=== PATIENT | male | born 1950 | race Caucasian/White ===

== ENCOUNTER 2018-06-03 10:54 | Outpatient (CLI) | payer MEDICARE, BC, SELFPAY ==
[2018-06-03 13:07] LABS: HCT 43.8 % (40.0-50.0); HGB 14.6 g/dL (13.5-17.5); Mean Corp. HGB Concentration 33.3 g/dL (32.0-36.0); Mean Corpuscular Hemoglobin 31.3 pg (27.0-33.0); Mean Platelet Volume 10.1 fL (8.0-11.0); Platelet Count 254 x1000/uL (130-400); RBC 4.66 m/cumm (4.50-6.00); RBC Distribution Width 13.2 % (11.8-14.1); White Blood Cell Count 5.72 k/cumm (4.4-10.8)
[2018-06-03 13:10] LABS: ALT 22 U/L (12-78); AST 13 U/L (15-37); Albumin 3.9 g/dL (3.4-5.0); Alkaline Phosphatase 78 U/L (46-116); Anion Gap 8.5 mmol/L (3-11); BUN 17 mg/dL (7-18); Bilirubin, Total 0.4 mg/dL (0.2-1.0); CO2 29.5 mmol/L (21.0-32.0); CREATININE 0.81 mg/dL (0.70-1.30); Calcium 9.5 mg/dL (8.5-10.1); Chloride 102 mmol/L (98-107); Glucose 82 mg/dL (70-100); Potassium 4.3 mmol/L (3.5-5.1); Sodium 140 mmol/L (136-145); Total Protein 6.8 g/dL (6.4-8.2)
[2018-06-04 09:58] LABS: Vitamin B12 308 pg/ml (211-911)
[2018-06-09 08:52] LABS: Methylmalonic Acid 0.18 nmol/mL (<=0.40)
== END 2018-06-03 11:14 ==
PROVIDERS: PCP Family Medicine; Visit Provider Family Medicine
DX: D36.9 Benign neoplasm, unspecified site (principal); R53.83 Other fatigue; I10 Essential (primary) hypertension; E53.8 Deficiency of other specified B group vitamins
CPT/HCPCS: 36415; 80053; 80186; 85027; 82607

== ENCOUNTER → 2018-06-05 12:55 | Outpatient (BNVA) | payer MEDICARE, BC, SELFPAY | PROVIDERS: PCP Family Medicine; Visit Provider Urology | DX: R31.29 Other microscopic hematuria (principal) | CPT/HCPCS: 99213 ==

== ENCOUNTER 2018-10-30 01:37 | Outpatient (CLI) | payer MEDICARE, BC, SELFPAY ==
--- NOTE | 2018-10-30 12:48 | DI.US_ITS ---
SYMPTOMS/DIAGNOSIS: BILATERAL TESTICULAR MASS, NONPAINFUL, N50.9 TESTICULAR ULTRASOUND: The right testicle measures 4.3 x 2.2 x 3.0 cm. It is homogeneous with normal blood flow. No evidence of torsion is seen. There are several simple cysts seen in the region of the epididymal head, the largest measures 2.3 x 1 x 1.8 cm. The left testicle measures 4.4 x 2.9 x 3.0 cm. It is homogeneous in echogenicity. There is normal blood flow. No evidence of torsion is seen. No intratesticular mass is present. There are several cysts seen in the region of the epididymal head, the largest measures 4.4 x 2.1 x 4.1 cm. IMPRESSION: 1. Bilateral epididymal head cysts. The largest is seen on the left and measures 4.4 cm in maximum diameter. 2. No evidence of an intratesticular mass or torsion.
--- NOTE | 2018-10-30 14:25 | DI.RAD_ITS ---
SYMPTOMS/DIAGNOSIS: PAIN AT 1ST LEFT METACARPAL, M79.645, NO TRAUMA LEFT THUMB: Multiple views. No acute fracture or dislocation is seen. There is mild periarticular spurring at the 1st carpometacarpal joint. At the metacarpophalangeal joint, the joint space appears well maintained, as does the interphalangeal joint. The bones are normally mineralized and intact. The soft tissues are unremarkable. IMPRESSION: Mild osteoarthritis at the 1st carpometacarpal joint.
== END 2018-10-30 01:57 ==
PROVIDERS: PCP Family Medicine; Visit Provider Family Medicine
DX: N50.9 Disorder of male genital organs, unspecified (principal); N50.3 Cyst of epididymis; M79.645 Pain in left finger(s); M18.12 Unilateral primary osteoarthritis of first carpometacarpal joint, left hand
CPT/HCPCS: 73140; 76870

== ENCOUNTER → 2018-11-24 14:20 | Outpatient (BNVA) | payer MEDICARE, BC, SELFPAY | PROVIDERS: PCP Family Medicine; Referring Provider Family Medicine; Visit Provider Urology | DX: N43.42 Spermatocele of epididymis, multiple (principal) | CPT/HCPCS: 99213 ==

== ENCOUNTER 2019-05-13 08:09 | Outpatient (CLI) | payer MEDICARE, BC, SELFPAY ==
[2019-05-13 08:36] LABS: Bilirubin Negative (Negative); Blood Trace-intact (Negative); Clarity Clear (Clear); Glucose Negative (Negative); Ketones Negative (Negative); Leukocyte Esterase Negative (Negative); Nitrite Negative (Negative); Urobilinogen 0.2 EU/dL (Up TO 0.2)
[2019-05-13 08:45] LABS: Bacteria Negative HPF (Negative); C & S Indicated? No; Casts Negative LPF (Negative); Crystals Negative HPF (Negative); Epithelial Cells Negative HPF (Negative); Mucus Negative (Negative); Other Cells Negative (Negative); RBC 0-2 (0-2); WBC Negative HPF (0-5)
[2019-05-13 09:32] LABS: ALT 19 U/L (16-63); AST 13 U/L (15-37); Albumin 3.9 g/dL (3.4-5.0); Alkaline Phosphatase 62 U/L (46-116); Anion Gap 6.6 mmol/L (3-11); BUN 21 mg/dL (7-18); Bilirubin, Total 0.5 mg/dL (0.2-1.0); CO2 31.4 mmol/L (21.0-32.0); CREATININE 1.06 mg/dL (0.70-1.30); Calcium 8.9 mg/dL (8.5-10.1); Calculated LDL 115 mg/dL; Chloride 104 mmol/L (98-107); Cholesterol 195 mg/dL (50-200); Glucose 94 mg/dL (70-100); HDL Cholesterol 61 mg/dL (40-60); Sodium 142 mmol/L (136-145); Total Protein 6.7 g/dL (6.4-8.2); Triglyceride 95 mg/dL (30-150)
[2019-05-14 17:58] LABS: PSA, Screening 0.7 ng/ml (0-4.5)
== END 2019-05-13 08:29 ==
PROVIDERS: PCP Family Medicine; Visit Provider Urology
DX: I10 Essential (primary) hypertension (principal); R31.9 Hematuria, unspecified; Z12.5 Encounter for screening for malignant neoplasm of prostate
CPT/HCPCS: 36415; 80053; 80061; 84153; 81003; 81015

== ENCOUNTER → 2019-06-08 10:14 | Outpatient (BNVA) | payer MEDICARE, BC, SELFPAY | PROVIDERS: PCP Family Medicine; Referring Provider Family Medicine; Visit Provider Urology | DX: R53.83 Other fatigue (principal); N43.40 Spermatocele of epididymis, unspecified | CPT/HCPCS: 99213 ==

== ENCOUNTER 2019-06-09 08:59 | Outpatient (CLI) | payer MEDICARE, BC, SELFPAY ==
[2019-06-09 10:39] LABS: TSH 2.03 uIU/mL (0.36-3.74)
[2019-06-11 11:21] LABS: Testosterone, Total 408 ng/dL (240-950)
== END 2019-06-09 09:19 ==
PROVIDERS: PCP Family Medicine; Visit Provider Urology
DX: R53.83 Other fatigue (principal)
CPT/HCPCS: 36415; 84403; 84443

== ENCOUNTER 2020-05-03 02:58 | Outpatient (CLI) | payer MEDICARE, BC, SELFPAY ==
--- NOTE | 2020-05-03 10:13 | DI.US_ITS ---
APPROVED REPORT EXAM: Comprehensive 2D, Doppler, and color-flow Echocardiogram Patient Location: Out-Patient Government Program Manager: Coni Mcginnis RDCS (AE) Indications: Fatigue, Exertional Dyspnea, HTN Other Information Study Quality: Good Conclusion Left Ventricle : The left ventricle is normal size. The left ventricular systolic function is normal. The left ventricular ejection fraction is within the normal range. There is normal left ventricular wall thickness. There is normal LV segmental wall motion. The left ventricular diastolic function is normal. LVEF is 60-65%. Right Ventricle : The right ventricle is normal size. The right ventricular systolic function is norm al. The RVSP is 32.6mmHg. Atria : The left atrium size is normal. The right atrium size is normal. Valves: There are no hemodynamically significant valvular lesions. Great Vessels : The aortic root is normal in size. The ascending aorta is mildly dilated. Aortic arch is normal in caliber. IVC is normal in size and collapses >50% with inspiration. Please see remainder of study for further details. Wall motion Left Ventricle The left ventricle is normal size. The left ventricular systolic function is normal. The left ventric ular ejection fraction is within the normal range. There is normal left ventricular wall thickness. T here is normal LV segmental wall motion. The left ventricular diastolic function is normal. There is no ventricular septal defect visualized. LVEF is 60-65%. Right Ventricle The right ventricle is normal size. The right ventricular systolic function is normal. The RVSP is 32 .6mmHg. Atria The left atrium size is normal. The right atrium size is normal. Atrial septal aneurysm is present. Aortic Valve The Aortic valve is sclerotic. Aortic valve is trileaflet. There is no aortic valvular stenosis. Trac e aortic regurgitation. Mitral Valve Mild mitral annular calcification. No evidence of mitral valve stenosis. Trace mitral regurgitation. Tricuspid Valve The tricuspid valve is normal in structure. There is no tricuspid valve stenosis. Mild tricuspid regu rgitation. Pulmonic Valve The pulmonary valve is normal in structure. There is no pulmonic valvular stenosis. Trace pulmonic re gurgitation. Great Vessels The aortic root is normal in size. The ascending aorta is mildly dilated. Aortic arch is normal in ca liber. IVC is normal in size and collapses >50% with inspiration. Pericardium There is no pericardial effusion. 2D Dimensions IVSD d PLAX 0.99 cm M: 0.6-1.2 LV Vol A2C d MOD 102.5 mL LVPW d PLAX 0.90 cm M: 0.6 - 1.2 LV Vol A4C d MOD 109.0 mL LVID d PLAX 5.09 cm M: 4.2 - 5.8 LA vol/ BSA A2C s A-L 20.4 mL/m2 LVDs 3.40 cm M: 2.5 - 4.0 LA vol/ BSA A4C s A-L 13.0 mL/m2 Ao Root d 3.79 cm M: 3.1 - 3.7 LA Vol/ BSA Biplane s A-L 16.4 mL/m2 RA Area A4C 17.64 cm2 LA Area A4C s MOD 13.55 cm2 RA Vol/ BSA A4C s A-L 21.8 mL/m2 LA Area A2C s MOD 16.85 cm2 Ao Asc Diam d 3.80 cm M: 2.6 - 3.4 LV EF A4C MOD 65.6 % LV EF Teichholz 60.4 % LV EF A2C MOD 60.4 % LVEF (Arias's) 63.39 % M: 52 - 72 LV EF Biplane MOD 63.4 % LV Volume 75.71 mL M: 62 - 150 SV 67.53 mL LV Volume Index 31.94 mL/m2 M: 34 - 74 SV Index 28.45 mL/m2 LV Vol Biplane MOD 106.5 mL FS 32.35 % M-Mode TAPSE 2.44 cm (M/F) >1.7 LV Diastology MV E' medial 0.078 (>0.07 m/s) E/A Ratio 0.8 LV E/e MED 9.75 (<14) MV E Vmax 0.76 (0.4-1.3 m/s) MV E' lateral 0.104 (>0.1 m/s) MV A Vmax 0.90 (0.4-1.3 m/s) LV E/e LAT 7.35 (<14) MV E/A Ratio 0.84 MV E/E' medial 9.77 MV E/E' lateral 7.35 Aortic Valve LVOT Area 3.92 cm2 AoV Area Vmax 2.95 cm2 LVOT Vmax 1.11 m/s AoV Area/ BSA (Vmax) 1.24 cm2/m2 LVOT Mean Jackson. 0.79 m/s BETHEL Mean Jackson. 3.03 cm2 LVOT Peak Grad 5.0 mmHg BETHEL Mean Jackson. Index 1.28 cm2/m2 LVOT Mean Grad 2.8 mmHg LVOT VTI 0.197 m LVOT Diam s 2.20 cm AoV Vmax 1.48 m/s Velocity Ratio 0.75 AoV Mean Jackson. 1.02 m/s AoV Peak Grad 8.7 mmHg LVOT SV 77.10 mL AoV Mean Grad 4.7 mmHg AoV VTI 0.284 m AoV Area VTI 2.71 cm2 AoV Area/ BSA (VTI) 1.14 cm/m2 Mitral Valve MV DT 220 (160-240 msec) MV PHT 64 msec MV Area PHT 3.45 cm2 Pulmonary Valve PV Vmax 1.67 (0.5-1.5 m/s) RVOT Peak Gr. 1.57 mmHg PV Peak Grad 11.1 mmHg RVOT Mean Gr. 0.75 mmHg PV Mean Grad 5.7 mmHg RVOT VTI 0.138 m PV VTI 0.274 m RVOT Vmax 0.63 m/s Tricuspid Valve TR Peak Grad 29.6 mmHg TR Vmax 2.72 m/s RA Pressure 3.00 mmHg RVSP (TR) 32.6 mmHg
== END 2020-05-03 03:18 ==
PROVIDERS: PCP Family Medicine; Visit Provider Family Medicine
DX: I10 Essential (primary) hypertension (principal); I77.810 Thoracic aortic ectasia
CPT/HCPCS: 80053; 80061; 85025; 93306

== ENCOUNTER 2020-05-03 05:26 | Outpatient (CLI) | payer MEDICARE, BC, SELFPAY ==
[2020-05-03 09:41] LABS: Abs Immature Grans 0.01 10^3/uL (0.0-0.06); Absolute Basophil Count 0.04 10^3/uL (0.0-0.2); Absolute Eosinophil Count 0.28 10^3/uL (0.0-0.7); Absolute Lymphocyte Count 1.88 10^3/uL (1.2-3.4); Absolute Monocyte Count 0.62 10^3/uL (0.1-0.8); Absolute Neutrophil Count 3.79 10^3/uL (1.2-6.7); Basophils % 0.6; Eosinophils % 4.2; HCT 43.2 % (40.0-50.0); HGB 14.8 g/dL (13.5-17.5); Immature Grans % 0.2; Lymphocytes % 28.4; MCH 31.8 pg (27.0-33.0); MCHC 34.3 % (32.0-36.0); MCV 92.7 fL (80-95); MPV 9.1 fL (8.0-11.0); Monocytes % 9.4; Neutrophils % 57.2; Nucleated RBC 0 %; Platelet Count 217 10^3/uL (130-400); RBC 4.66 10^6/uL (4.36-5.78); RDW 12.9 % (11.8-14.1); RDW-SD 43.9 fL; WBC 6.62 10^3/uL (4.4-10.8)
[2020-05-03 11:04] LABS: ALT 23 U/L (16-63); AST 14 U/L (15-37); Alkaline Phosphatase 60 U/L (46-116); Anion Gap 7.8 mmol/L (3-11); BUN 20 mg/dL (7-18); Bilirubin, Total 0.5 mg/dL (0.2-1.0); CO2 28.2 mmol/L (21.0-32.0); CREATININE 0.96 mg/dL (0.70-1.30); Calcium 9.2 mg/dL (8.5-10.1); Calculated LDL 129 mg/dL (<100); Chloride 104 mmol/L (98-107); Cholesterol 209 mg/dL (<200); Glucose 95 mg/dL (74-106); HDL Cholesterol 56 mg/dL (40-60); Potassium 4.3 mmol/L (3.5-5.1); Sodium 140 mmol/L (136-145); Total Protein 6.8 g/dL (6.4-8.2); Triglyceride 120 mg/dL (<150)
== END 2020-05-03 05:46 ==
PROVIDERS: PCP Family Medicine; Visit Provider Family Medicine
DX: I10 Essential (primary) hypertension (principal)
CPT/HCPCS: 80053; 80061; 85025

== ENCOUNTER 2020-12-27 02:42 | Outpatient (CLI) | payer MEDICARE, BC, SELFPAY ==
--- NOTE | 2020-12-27 06:30 | DI.US_ITS ---
Exam(s) US ABDOMEN EXAM: US ABDOMEN CLINICAL HISTORY: abdominal pain/upper abdomen/post prandial worse.R10.9 TECHNIQUE: Ultrasound of complete upper abdomen performed using standard protocol. COMPARISON: US US ECHOCARDIOGRAM from 05/03/2020 FINDINGS: There is no ascites evident. LIVER: There are no hepatic lesions evident nor obvious dilatation of intrahepatic ducts. GALLBLADDER/BILIARY: There are no gallstones. No gallbladder wall edema nor pericholecystic fluid. The common hepatic duct isnot dilated, measuring 3-4mm at the level of zarina hepatis. PANCREAS: There is no evidence of pancreatic mass nor dilatation of the pancreatic duct. SPLEEN: The spleen is not enlarged and there are no intrasplenic lesions evident. KIDNEYS:Right kidney appears unremarkable. There is a 4-5 millimeter hyperechoic focus in the left k idney which may be a small nonobstructive calculus. Does not exhibit shadowing. Cannot rule out sma ll benign angiomyolipoma. No cortical cysts evident. ABDOMINAL AORTA: There is no evidence of abdominal aortic aneurysm. IVC: Normal diameter where visualized. IMPRESSION: 1. No evidence of cholelithiasis nor dilatation of the biliary tree. 2. 4 millimeter probable nonobstructive calculus in the left kidney. 3. There is no ascites. DATA REPOSITORY:
== END 2020-12-27 03:02 ==
PROVIDERS: PCP Family Medicine; Visit Provider Family Medicine
DX: R10.12 Left upper quadrant pain (principal); N20.0 Calculus of kidney
CPT/HCPCS: 76700

== ENCOUNTER 2020-12-27 04:26 | Outpatient (CLI) | payer MEDICARE, BC, SELFPAY ==
[2020-12-27 07:28] LABS: Abs Immature Grans 0.02 10^3/uL (0.0-0.06); Absolute Basophil Count 0.03 10^3/uL (0.0-0.2); Absolute Eosinophil Count 0.23 10^3/uL (0.0-0.7); Absolute Monocyte Count 0.58 10^3/uL (0.1-0.8); Absolute Neutrophil Count 3.34 10^3/uL (1.2-6.7); Basophils % 0.5; HCT 42.8 % (40.0-50.0); HGB 14.4 g/dL (13.5-17.5); Immature Grans % 0.3; Lymphocytes % 27.6; MCH 31.5 pg (27.0-33.0); MCHC 33.6 % (32.0-36.0); MCV 93.7 fL (80-95); MPV 9.1 fL (8.0-11.0); Neutrophils % 57.6; Nucleated RBC 0 %; Platelet Count 244 10^3/uL (130-400); RBC 4.57 10^6/uL (4.36-5.78); RDW 12.9 % (11.8-14.1); RDW-SD 44.3 fL
[2020-12-27 08:56] LABS: ALT 24 U/L (16-63); AST 15 U/L (15-37); Albumin 3.9 g/dL (3.4-5.0); Alkaline Phosphatase 76 U/L (46-116); Amylase 38 U/L (25-115); Anion Gap 6.4 mmol/L (3-11); BUN 16 mg/dL (7-18); Bilirubin, Total 0.6 mg/dL (0.2-1.0); CO2 31.6 mmol/L (21.0-32.0); CREATININE 1.1 mg/dL (0.70-1.30); Calcium 9.2 mg/dL (8.5-10.1); Chloride 104 mmol/L (98-107); Glucose 95 mg/dL (74-106); Lipase 52 U/L (73-393); Potassium 4.3 mmol/L (3.5-5.1); Sodium 142 mmol/L (136-145); Total Protein 6.9 g/dL (6.4-8.2)
[2020-12-27 09:04] LABS: GGT 37 U/L (15-85)
[2020-12-28 09:41] LABS: Lyme Ab w Rflx to Lyme Confirm Negative (Negative)
[2020-12-29 03:42] LABS: Anaplasma phagocytophilum Negative (Negative); B. miyamotoi PCR Negative (Negative); Babesia divergens/MO-1 Negative (Negative); Babesia duncani Negative (Negative); Babesia microti Negative (Negative); Ehrlichia chaffeensis Negative (Negative); Ehrlichia ewingii/canis Negative (Negative); Ehrlichia muris eauclairensis Negative (Negative)
== END 2020-12-27 04:27 | disposition home or self-care (01) ==
LOC: LBO 04:26
PROVIDERS: PCP Family Medicine; Visit Provider Family Medicine
DX: R10.12 Left upper quadrant pain (principal); E78.00 Pure hypercholesterolemia, unspecified; R53.83 Other fatigue; N20.0 Calculus of kidney
CPT/HCPCS: 36415; 80053; 83690; 87798; 76700; 82150; 82977; 85025; 86618

== ENCOUNTER 2021-01-29 02:11 | Outpatient (CLI) | payer MEDICARE, BC, SELFPAY ==
--- NOTE | 2021-01-29 10:43 | DI.RAD_ITS ---
Exam(s) XR CHEST 2V PA LATERAL EXAM: XR CHEST 2V PA LATERAL CLINICAL HISTORY: exertional dyspnea de pamela, R06.00. TECHNIQUE: 2D digital imaging was performed. COMPARISON: CT CHEST WITH CONTRAST from 12/03/2013 CT CHEST WITH CONTRAST from 12/03/2013 was reviewed FINDINGS: Heart size is normal. The mediastinum is not widened. There are no pulmonary infiltrates nor pleural effusions. There is a 1.5 by 1.0 cm nodule in right l tami base which is probably a granuloma given its density. However, this was not evident on the 2014 CT scan. There are no other focal pulmonary findings. IMPRESSION: There is a 15 x 10 millimeter nodule in the right lower lung was not evident on CT scan of 2014. Alt nery this may be a calcified granuloma recommend noninfused CT scan confirmation. DATA REPOSITORY: RADIATION DOSE DELIVERED:
== END 2021-01-29 02:31 ==
PROVIDERS: PCP Family Medicine; Visit Provider Family Medicine
DX: R91.1 Solitary pulmonary nodule (principal); R06.00 Dyspnea, unspecified
CPT/HCPCS: 71046

== ENCOUNTER 2021-01-30 03:01 | Outpatient (CLI) | payer MEDICARE, BC, SELFPAY ==
[2021-01-30 16:57] LABS: PSA, Screening 0.9 ng/mL (0.0-6.5)
== END 2021-01-30 03:02 | disposition home or self-care (01) ==
LOC: LOS 03:02
PROVIDERS: PCP Family Medicine; Visit Provider Family Medicine
DX: R53.83 Other fatigue (principal); N40.0 Benign prostatic hyperplasia without lower urinary tract symptoms; Z12.5 Encounter for screening for malignant neoplasm of prostate
CPT/HCPCS: 36415; 84153; 84443

== ENCOUNTER 2021-01-30 07:22 | Outpatient (CLI) | payer MEDICARE, BC, SELFPAY ==
[2021-01-30] MEDS: Albuterol HFA 18 GM 200 PUFF INH IH (11:20)
[2021-01-30] MEDS: Inhaler, Assist Device 1 EACH MC (11:21)
--- NOTE | 2021-01-30 16:17 | W.PFT ---
Date of service: 01/30/21 Time of Service: 10:02 Pulmonary Function Test Result Interpretation Spirometry: No evidence of obstructive airways disease, no bronchodilator response Impression Normal spirometry Clinical Correlation therefore is recommended.
== END 2021-01-30 07:23 | disposition home or self-care (01) ==
LOC: RT 07:24
PROVIDERS: PCP Family Medicine; Visit Provider Family Medicine
DX: R06.09 Other forms of dyspnea (principal); Z87.891 Personal history of nicotine dependence
CPT/HCPCS: 94060; 94726; 94729

== ENCOUNTER 2021-02-09 03:19 | Outpatient (CLI) | payer MEDICARE, BC, SELFPAY ==
--- NOTE | 2021-02-09 07:45 | DI.CT_ITS ---
Exam(s) CT CHEST WO EXAM: CT CHEST WO CLINICAL HISTORY: RLL 15 x 10mm nodule on chest xray,LUNG NODULE,R91.1 TECHNIQUE: Imaging Protocol: Axial computed tomography images with coronal and sagittal reformatted images were created and reviewed CONTRAST MATERIAL: Intravenous: Omnipaque 350 Contrast volume:structured data in ml. COMPARISON: CT CHEST WITH CONTRAST from 12/03/2013 CR XR CHEST 2V PA LATERAL from 01/29/2021 FINDINGS: Calcification question on recent chest x-ray corresponds to a calcified right infrahilar lymph node. Calcified subcarinal lymph node also seen. They were present on the previous CT of 2013. Two addit ional tiny calcified nodules are seen in the right lower lobe. No suspicious nodules or suspicious a denopathy is seen. Coronary artery calcifications are seen. The heart size is normal. The aorta is normal in diameter. No pleural or pericardial effusions or evidence of infiltrates. Degenerative c hanges are seen in the spine. The visualized portions of the upper abdomen are unremarkable. IMPRESSION: Calcified right inferior hilar and mediastinal lymph nodes consistent with old healed granulomatous d isease. no change from 2014. No suspicious pulmonary nodules. RADIATION DOSE DELIVERED: 708.4mGy.cm Total DLP DATA REPOSITORY: All CT scans at this facility are submitted to the National Radiology Data Registry (NRDR) Dose Index Registry (DIR) with the [employer] (ACR). RADIATION OPTIMIZATION: All CT scans at this facility use at least one of these dose optimization te chniques: automated exposure control; mA and/or kV adjustment per patient size (includes targeted exa ms where dose is matched to clinical indication); or iterative reconstruction.
== END 2021-02-09 03:39 ==
PROVIDERS: PCP Family Medicine; Visit Provider Family Medicine
DX: R91.1 Solitary pulmonary nodule (principal); I89.8 Other specified noninfective disorders of lymphatic vessels and lymph nodes
CPT/HCPCS: 71250

== ENCOUNTER 2021-03-20 02:04 | Outpatient (CLI) | payer MEDICARE, BC, SELFPAY ==
--- NOTE | 2021-03-20 07:45 | DI.NM_ITS ---
APPROVED REPORT Exam: Pharmacologic Patient Location: Out-Patient Room/Bed: Stress Nurse: Fariba Bowman RN Ordering Provider:CARMEN QUIROGA, Contact Number: [phone] BMI: 29.74 Baseline Rhythm: Sinus Rhythm Comment: 1 DHB. Flipped T waves lead III, V3, V4 Indications: Exertional dyspnea Medical History Medical History: Hypertension, hyperlipidemia, smoker (former), osteoarthritis, JENSEN Cardiac Medications: Tadalafil, olmesartan, hydrochlorothiazide Allergies: NKA Cardiac Risk Factors: Hypertension, hyperlipidemia, smoker (former), familiy hx Previous Cardiac Procedures: None Pretest Chest Pain Characteristics: None Exercise History: Sedentary Physical Disabilities: None Lung Sounds: Clear to auscultation Heart Sounds: Regular Stress Test Details Test: Exercise stress converted to pharmacologic stress due to failure to obtain a diagnostic stress test. Reason for pharmacologic stress test: changed from exercise stress test due to inability to reach t arget heart rate. Nuclear Acquisition: Rest Tc-99m/Stress Tc-99m 1 day Rest Isotope: Tc-99m Sestamibi. Dose: 10.5 Date: 03/20/2021 Injection Time: 1115 Stress Isotope: Tc-99m Sestamibi. Dose: 33.0 Date: 03/20/2021 Injection Time: 13.30 HR Resting HR Supine: 68 bpm Max Heart Rate (APMHR): 149.444476 bpm Resting HR Standin bpm Target HR (85% APMHR): 126.646394 bpm Max HR Achieved: 118 bpm % of APMHR: 79.19 Recovery HR: 86 bpm HR response to stress: Normal HR response to stress Comment: Pt did not reach THR BP Resting BP Supine: 132/84 mmHg Resting BP Standin/90 mmHg Max BP: 150/84 mmHg Recovery BP: 120/74 mmHg BP response to stress: Normal blood pressure response to stress. ECG Resting ECG: Sinus Rhythm, 1 DHB Ectopy: None Comment: Inverted T waves lead III, V3, V4 Stress ECG: Sinus Tachycardia ST Change: No significant ST segment changes noted Arrhythmia: Occasional PACs Recovery ECG: Sinus Rhythm, Recovery ST Change: No significant ST segment changes noted Recovery Arrhythmia: Rare PAC Comment: T waves lead III, V3, V4 upright Clinical Reason for Termination: Fatigue Stress Symptoms: General Fatigue, Dyspnea Exercise duration: 6 min13 sec Highest Stage Reached: Stage 3: 3.4 mph at 14% grade. Exercise capacity: 7.38 METs Rate Pressure Product: [id number] Stress ECG Conclusion 1. This was an exercise stress test converted to a Lexiscan after patient was able to reach target he art rate. 2. The EKG portion of this exam was nondiagnostic. Stress Test Summary STAGE Time (mins) Speed (mph) Grade (%) HR BP SYMPTOMS METS Supine 68 132/84 Standing 78 142/90 SpO2 98% 1 3 1.7 10 103 150/84 SpO2 98%, mild SOB 4.6 2 6 2.5 12 117 164/84 SpO2 97% 7 3 9 3.4 14 118 10.2 1 min post Lexiscan injection 114 128/70 SpO2 98%, mild nausea 3 min post Lexiscan injection 92 144/78 SpO2 98%, symptoms resolved 6 min post Lexiscan injection 86 120/74 MPI Conclusion Ejection fraction was 69% with stress. There were no wall motion abnormalities. There is no evidence of ischemia on the imaging portion exam. This represents a normal SPECT stress test. Radiologist Interpretation Radiologist agrees with [employer] Sawyer's Interpretation. Radiologist Interpretation by: Roderick Camargo MD Interpretation Date/Time: 03/20/2021 15:07:34
[2021-03-20] MEDS: Regadenoson 0.4 MG/5 ML SYR IVP (13:51)
== END 2021-03-20 02:24 ==
PROVIDERS: PCP Family Medicine; Visit Provider Family Medicine
DX: R06.00 Dyspnea, unspecified (principal); I10 Essential (primary) hypertension; E78.5 Hyperlipidemia, unspecified; Z87.891 Personal history of nicotine dependence; Z82.49 Family history of ischemic heart disease and other diseases of the circulatory system
CPT/HCPCS: 78452; 93016; 93018; 93017; J2785

== ENCOUNTER 2021-04-19 02:07 | Outpatient (CLI) | payer MEDICARE, BC, SELFPAY ==
--- NOTE | 2021-04-19 08:00 | DI.US_ITS ---
Exam(s) US CAROTID EXAM: US CAROTID CLINICAL HISTORY: dizziness, SYNCOPE, R42, R55. TECHNIQUE: Ultrasound carotids performed using grayscale, color-flow, and spectral Doppler imaging. COMPARISON: No exams were available for comparison FINDINGS: RIGHT CAROTID ARTERY: Plaque: No significant calcific plaque. Velocity elevation: None. LEFT CAROTID ARTERY: Plaque: No significant calcific plaque. Velocity elevation: None. VERTEBRAL ARTERIES: Antegrade flow. Measurements: R Bulb: 78.4cm/s PS / 23.8cm/s ED R CCA: 101.5cm/s PS / 18.6cm/s ED R ECA: 70.1cm/s PS / 13.5cm/s ED R ICA Prox: 31.9cm/s PS /11.6cm/s ED R ICA Mid: 54.1cm/s PS / 19.4cm/s ED R ICA Distal: 68.5cm/s PS /25.9cm/s ED R Vert: 43cm/s PS / 13.4cm/s ED R SVR: 0.67 R DVR: 1.39 L Bulb: 70.1cm/s PS /11.6cm/s ED L CCA: 85.3cm/s PS / 19.5cm/s ED L ECA: 83.9cm/s PS /20.2cm/s ED L ICA Prox:55cm/s PS / 13cm/s ED L ICA Mid: 71.6cm/sPS / 26.8cm/s ED L ICA Distal: 86.8cm/s PS / 33.3cm/s ED L Vert: 52.8cm/s PS / 18.8cm/s ED L SVR: 1.02 L DVR: 1.71 IMPRESSION: No evidence for hemodynamically significant carotid stenosis. Criteria for Carotid Stenosis: Normal: ICA PSV <125 cm/s no plaque or intimal thickening is visible. <50% stenosis: ICA PSV <125 cm/s and plaque or intimal thickening is visible. 50-69% stenosis: ICA PSV is 125-250 cm/s and plaque is visible. >70% stenosis to near occlusion: ICA PSV >250 cm/s with visible plaque and luminal narrowing. DATA REPOSITORY:
== END 2021-04-19 02:27 ==
PROVIDERS: PCP Family Medicine; Visit Provider Family Medicine
DX: R42 Dizziness and giddiness (principal); R55 Syncope and collapse
CPT/HCPCS: 93880

== ENCOUNTER 2021-12-27 03:19 | Outpatient (CLI) | payer MEDICARE, SELFPAY ==
[2021-12-27 12:38] LABS: HGB 14.3 g/dL (13.5-17.5); MCH 30.4 pg (27.0-33.0); MCHC 33.3 % (32.0-36.0); MCV 91 fL (80-95); MPV 9.9 fL (8.0-11.0); Platelet Count 396 10^3/uL (130-400); RBC 4.71 10^6/uL (4.36-5.78); RDW 12.6 % (11.8-14.1); RDW-SD 42.6 fL; WBC 11.91 10^3/uL (4.4-10.8)
[2021-12-28 12:47] LABS: Lyme Ab w Rflx to Lyme Confirm Negative (Negative)
[2021-12-29 00:09] LABS: Anaplasma phagocytophilum Negative (Negative); B. miyamotoi PCR Negative (Negative); Babesia divergens/MO-1 Negative (Negative); Babesia duncani Negative (Negative); Babesia microti Negative (Negative); Ehrlichia chaffeensis Negative (Negative); Ehrlichia ewingii/canis Negative (Negative); Ehrlichia muris eauclairensis Negative (Negative)
== END 2021-12-27 03:20 | disposition home or self-care (01) ==
LOC: LOS 03:19
PROVIDERS: PCP Nurse Practitioner Family; Visit Provider Nurse Practitioner Family
DX: R42 Dizziness and giddiness (principal); R53.83 Other fatigue
CPT/HCPCS: 36415; 85027; 87798; 86618

== ENCOUNTER 2022-03-04 03:39 | Outpatient (CLI) | payer MEDICARE, SELFPAY ==
[2022-03-04 10:44] LABS: Abs Immature Grans 0.03 10^3/uL (0.0-0.06); Absolute Basophil Count 0.02 10^3/uL (0.0-0.2); Absolute Eosinophil Count 0.07 10^3/uL (0.0-0.7); Absolute Lymphocyte Count 1.39 10^3/uL (1.2-3.4); Absolute Monocyte Count 0.78 10^3/uL (0.1-0.8); Absolute Neutrophil Count 6.29 10^3/uL (1.2-6.7); Basophils % 0.2; Eosinophils % 0.8; HCT 39.9 % (40.0-50.0); HGB 12.8 g/dL (13.5-17.5); Immature Grans % 0.3; Lymphocytes % 16.2; MCH 28.9 pg (27.0-33.0); MCHC 32.1 % (32.0-36.0); MCV 90 fL (80-95); MPV 9.1 fL (8.0-11.0); Monocytes % 9.1; Neutrophils % 73.4; Platelet Count 308 10^3/uL (130-400); RBC 4.43 10^6/uL (4.36-5.78); RDW 14.1 % (11.8-14.1); RDW-SD 46.4 fL; WBC 8.58 10^3/uL (4.4-10.8)
[2022-03-04 11:47] LABS: ALT 20 U/L (16-63); AST 14 U/L (15-37); Albumin 3.3 g/dL (3.4-5.0); Alkaline Phosphatase 75 U/L (46-116); Anion Gap 6.9 mmol/L (3-11); BUN 16 mg/dL (7-18); Bilirubin, Total 0.5 mg/dL (0.2-1.0); CO2 28.1 mmol/L (21.0-32.0); CREATININE 0.8 mg/dL (0.70-1.30); Calcium 9.2 mg/dL (8.5-10.1); Chloride 99 mmol/L (98-107); Glucose 95 mg/dL (74-106); Potassium 3.5 mmol/L (3.5-5.1); Sodium 134 mmol/L (136-145); Total Protein 7.4 g/dL (6.4-8.2)
== END 2022-03-04 03:40 | disposition home or self-care (01) ==
LOC: LBO 03:43
PROVIDERS: PCP Nurse Practitioner Family; Visit Provider Internal Medicine Hematology & Oncology
DX: C20 Malignant neoplasm of rectum (principal)
CPT/HCPCS: 36415; 80053; 85025

== ENCOUNTER 2022-03-11 03:47 | Outpatient (CLI) | payer MEDICARE, SELFPAY ==
[2022-03-11 10:45] LABS: Abs Immature Grans 0.04 10^3/uL (0.0-0.06); Absolute Basophil Count 0.02 10^3/uL (0.0-0.2); Absolute Eosinophil Count 0.08 10^3/uL (0.0-0.7); Absolute Lymphocyte Count 0.77 10^3/uL (1.2-3.4); Absolute Monocyte Count 0.52 10^3/uL (0.1-0.8); Basophils % 0.4; Eosinophils % 1.5; HCT 36.9 % (40.0-50.0); HGB 12.5 g/dL (13.5-17.5); Immature Grans % 0.8; Lymphocytes % 14.4; MCHC 33.9 % (32.0-36.0); MCV 89 fL (80-95); MPV 8.5 fL (8.0-11.0); Monocytes % 9.8; Neutrophils % 73.1; Platelet Count 290 10^3/uL (130-400); RBC 4.17 10^6/uL (4.36-5.78); RDW-SD 44.5 fL; WBC 5.33 10^3/uL (4.4-10.8)
[2022-03-11 11:35] LABS: ALT 20 U/L (16-63); AST 13 U/L (15-37); Albumin 3.2 g/dL (3.4-5.0); Alkaline Phosphatase 67 U/L (46-116); BUN 21 mg/dL (7-18); Bilirubin, Total 0.3 mg/dL (0.2-1.0); CREATININE 0.8 mg/dL (0.70-1.30); Chloride 99 mmol/L (98-107); Glucose 93 mg/dL (74-106); Potassium 3.4 mmol/L (3.5-5.1); Sodium 138 mmol/L (136-145); Total Protein 7.3 g/dL (6.4-8.2)
== END 2022-03-11 03:48 | disposition home or self-care (01) ==
LOC: LBO 03:47
PROVIDERS: PCP Nurse Practitioner Family; Visit Provider Internal Medicine Hematology & Oncology
DX: C20 Malignant neoplasm of rectum (principal)
CPT/HCPCS: 36415; 80053; 85025

== ENCOUNTER 2022-03-18 02:36 | Outpatient (CLI) | payer MEDICARE, SELFPAY ==
[2022-03-18 10:55] LABS: Abs Immature Grans 0.02 10^3/uL (0.0-0.06); Absolute Basophil Count 0.01 10^3/uL (0.0-0.2); Absolute Eosinophil Count 0.11 10^3/uL (0.0-0.7); Absolute Lymphocyte Count 0.64 10^3/uL (1.2-3.4); Absolute Monocyte Count 0.46 10^3/uL (0.1-0.8); Absolute Neutrophil Count 2.89 10^3/uL (1.2-6.7); Basophils % 0.2; Eosinophils % 2.7; HCT 34.9 % (40.0-50.0); HGB 11.5 g/dL (13.5-17.5); Immature Grans % 0.5; Lymphocytes % 15.5; MCH 29.6 pg (27.0-33.0); MCV 90 fL (80-95); MPV 8.3 fL (8.0-11.0); Monocytes % 11.1; Platelet Count 180 10^3/uL (130-400); RBC 3.88 10^6/uL (4.36-5.78); RDW 15.1 % (11.8-14.1); RDW-SD 45.7 fL; WBC 4.13 10^3/uL (4.4-10.8)
[2022-03-18 11:44] LABS: ALT 31 U/L (16-63); AST 19 U/L (15-37); Albumin 3.3 g/dL (3.4-5.0); Alkaline Phosphatase 61 U/L (46-116); Anion Gap 5.4 mmol/L (3-11); BUN 17 mg/dL (7-18); Bilirubin, Total 0.3 mg/dL (0.2-1.0); CO2 30.6 mmol/L (21.0-32.0); CREATININE 0.9 mg/dL (0.70-1.30); Calcium 8.6 mg/dL (8.5-10.1); Chloride 106 mmol/L (98-107); Glucose 94 mg/dL (74-106); Potassium 3.9 mmol/L (3.5-5.1); Sodium 142 mmol/L (136-145); Total Protein 6.6 g/dL (6.4-8.2)
== END 2022-03-18 02:37 | disposition home or self-care (01) ==
LOC: LBO 02:37
PROVIDERS: PCP Nurse Practitioner Family; Visit Provider Internal Medicine Hematology & Oncology
DX: C20 Malignant neoplasm of rectum (principal)
CPT/HCPCS: 36415; 80053; 85025

== ENCOUNTER 2022-03-25 03:56 | Outpatient (CLI) | payer MEDICARE, SELFPAY ==
[2022-03-25 10:32] LABS: Abs Immature Grans 0.02 10^3/uL (0.0-0.06); Absolute Basophil Count 0.01 10^3/uL (0.0-0.2); Absolute Eosinophil Count 0.09 10^3/uL (0.0-0.7); Absolute Lymphocyte Count 0.54 10^3/uL (1.2-3.4); Absolute Monocyte Count 0.61 10^3/uL (0.1-0.8); Absolute Neutrophil Count 3.08 10^3/uL (1.2-6.7); Basophils % 0.2; Eosinophils % 2.1; HCT 37.8 % (40.0-50.0); HGB 12.3 g/dL (13.5-17.5); Immature Grans % 0.5; Lymphocytes % 12.4; MCH 29.9 pg (27.0-33.0); MCHC 32.5 % (32.0-36.0); MCV 92 fL (80-95); MPV 8.1 fL (8.0-11.0); Neutrophils % 70.8; Platelet Count 138 10^3/uL (130-400); RBC 4.12 10^6/uL (4.36-5.78); RDW 16.8 % (11.8-14.1); RDW-SD 47.3 fL; WBC 4.35 10^3/uL (4.4-10.8)
[2022-03-25 11:17] LABS: ALT 42 U/L (16-63); AST 23 U/L (15-37); Albumin 3.6 g/dL (3.4-5.0); Alkaline Phosphatase 64 U/L (46-116); Anion Gap 5.9 mmol/L (3-11); BUN 17 mg/dL (7-18); Bilirubin, Total 0.4 mg/dL (0.2-1.0); CO2 30.1 mmol/L (21.0-32.0); Chloride 104 mmol/L (98-107); Glucose 91 mg/dL (74-106); Sodium 140 mmol/L (136-145); Total Protein 7.3 g/dL (6.4-8.2)
== END 2022-03-25 03:57 | disposition home or self-care (01) ==
LOC: LBO 03:56
PROVIDERS: PCP Nurse Practitioner Family; Visit Provider Internal Medicine Hematology & Oncology
DX: C20 Malignant neoplasm of rectum (principal)
CPT/HCPCS: 36415; 80053; 85025

== ENCOUNTER 2022-04-01 04:07 | Outpatient (CLI) | payer MEDICARE, SELFPAY ==
[2022-04-01 10:59] LABS: Abs Immature Grans 0.02 10^3/uL (0.0-0.06); Absolute Basophil Count 0.02 10^3/uL (0.0-0.2); Absolute Eosinophil Count 0.13 10^3/uL (0.0-0.7); Absolute Monocyte Count 0.54 10^3/uL (0.1-0.8); Basophils % 0.6; Eosinophils % 3.7; HCT 34.4 % (40.0-50.0); HGB 11.7 g/dL (13.5-17.5); Immature Grans % 0.6; Lymphocytes % 14.2; MCH 31.1 pg (27.0-33.0); MCV 92 fL (80-95); MPV 8.4 fL (8.0-11.0); Monocytes % 15.4; Neutrophils % 65.5; Platelet Count 135 10^3/uL (130-400); RBC 3.76 10^6/uL (4.36-5.78); RDW 18.4 % (11.8-14.1); RDW-SD 48.6 fL; WBC 3.51 10^3/uL (4.4-10.8)
[2022-04-01 12:28] LABS: ALT 49 U/L (16-63); AST 29 U/L (15-37); Albumin 3.6 g/dL (3.4-5.0); Alkaline Phosphatase 60 U/L (46-116); Anion Gap 7.4 mmol/L (3-11); BUN 16 mg/dL (7-18); Bilirubin, Total 0.5 mg/dL (0.2-1.0); CO2 27.6 mmol/L (21.0-32.0); CREATININE 0.8 mg/dL (0.70-1.30); Calcium 8.7 mg/dL (8.5-10.1); Chloride 104 mmol/L (98-107); Glucose 93 mg/dL (74-106); Potassium 3.9 mmol/L (3.5-5.1); Sodium 139 mmol/L (136-145); Total Protein 6.9 g/dL (6.4-8.2)
== END 2022-04-01 04:08 | disposition home or self-care (01) ==
LOC: LBO 04:07
PROVIDERS: PCP Nurse Practitioner Family; Visit Provider Internal Medicine Hematology & Oncology
DX: C20 Malignant neoplasm of rectum (principal)
CPT/HCPCS: 36415; 80053; 85025

== ENCOUNTER 2022-04-09 02:15 | Outpatient (CLI) | payer MEDICARE, SELFPAY ==
[2022-04-09 14:00] LABS: Abs Immature Grans 0.01 10^3/uL (0.0-0.06); Absolute Basophil Count 0.01 10^3/uL (0.0-0.2); Absolute Eosinophil Count 0.12 10^3/uL (0.0-0.7); Absolute Lymphocyte Count 0.45 10^3/uL (1.2-3.4); Absolute Monocyte Count 0.59 10^3/uL (0.1-0.8); Absolute Neutrophil Count 3.16 10^3/uL (1.2-6.7); Basophils % 0.2; Eosinophils % 2.8; HCT 32.6 % (40.0-50.0); HGB 10.8 g/dL (13.5-17.5); Immature Grans % 0.2; Lymphocytes % 10.4; MCH 31.3 pg (27.0-33.0); MCHC 33.1 % (32.0-36.0); MCV 95 fL (80-95); Monocytes % 13.6; Neutrophils % 72.8; Platelet Count 153 10^3/uL (130-400); RBC 3.45 10^6/uL (4.36-5.78); RDW 20.8 % (11.8-14.1); RDW-SD 70.3 fL; WBC 4.34 10^3/uL (4.4-10.8)
[2022-04-09 14:11] LABS: Anisocytosis 2+; Diff Comment RBC Morph Reviewed
[2022-04-09 14:15] LABS: ALT 47 U/L (16-63); AST 24 U/L (15-37); Albumin 3.5 g/dL (3.4-5.0); Alkaline Phosphatase 63 U/L (46-116); Anion Gap 5.8 mmol/L (3-11); BUN 24 mg/dL (7-18); Bilirubin, Total 0.3 mg/dL (0.2-1.0); CO2 30.2 mmol/L (21.0-32.0); Calcium 8.7 mg/dL (8.5-10.1); Chloride 103 mmol/L (98-107); Estimated GFR 79.97 (mL/min/1.73m2); Glucose 112 mg/dL (74-106); Potassium 4.1 mmol/L (3.5-5.1); Sodium 139 mmol/L (136-145); Total Protein 6.5 g/dL (6.4-8.2)
== END 2022-04-09 02:16 | disposition home or self-care (01) ==
LOC: LBO 02:15
PROVIDERS: PCP Nurse Practitioner Family; Visit Provider Internal Medicine Hematology & Oncology
DX: C20 Malignant neoplasm of rectum (principal)
CPT/HCPCS: 36415; 80053; 85025

== ENCOUNTER 2022-05-03 01:07 | Outpatient (RCR) | payer MEDICARE, SELFPAY ==
[2022-05-03] MEDS: Normal Saline Flush 10 ML SYR IVP (08:35)
[2022-05-03 08:42] LABS: Abs Immature Grans 0.02 10^3/uL (0.0-0.06); Absolute Basophil Count 0.03 10^3/uL (0.0-0.2); Absolute Eosinophil Count 0.23 10^3/uL (0.0-0.7); Absolute Lymphocyte Count 0.64 10^3/uL (1.2-3.4); Absolute Monocyte Count 0.53 10^3/uL (0.1-0.8); Absolute Neutrophil Count 2.92 10^3/uL (1.2-6.7); Basophils % 0.7; Eosinophils % 5.3; HCT 37.4 % (40.0-50.0); HGB 12.6 g/dL (13.5-17.5); Immature Grans % 0.5; Lymphocytes % 14.6; MCH 32.8 pg (27.0-33.0); MCHC 33.7 % (32.0-36.0); MCV 97 fL (80-95); MPV 8.7 fL (8.0-11.0); Monocytes % 12.1; Neutrophils % 66.8; Platelet Count 173 10^3/uL (130-400); RBC 3.84 10^6/uL (4.36-5.78); RDW 20.7 % (11.8-14.1); RDW-SD 71.4 fL; WBC 4.37 10^3/uL (4.4-10.8)
[2022-05-03 08:52] LABS: Diff Comment RBC Morph Reviewed
[2022-05-03 08:54] LABS: Anisocytosis 2+
[2022-05-03 08:58] LABS: ALT 43 U/L (16-63); AST 21 U/L (15-37); Albumin 3.7 g/dL (3.4-5.0); Alkaline Phosphatase 94 U/L (46-116); Anion Gap 5.7 mmol/L (3-11); BUN 15 mg/dL (7-18); Bilirubin, Total 0.5 mg/dL (0.2-1.0); CO2 31.3 mmol/L (21.0-32.0); Calcium 9.4 mg/dL (8.5-10.1); Chloride 102 mmol/L (98-107); Estimated GFR 79.97 (mL/min/1.73m2); Glucose 112 mg/dL (74-106); Potassium 3.8 mmol/L (3.5-5.1); Sodium 139 mmol/L (136-145); Total Protein 7.1 g/dL (6.4-8.2)
[2022-05-03 19:39] LABS: CEA 0.9 ng/mL (See Note)
== END 2022-05-03 23:59 | disposition home or self-care (01) ==
LOC: INF 01:07
PROVIDERS: PCP Nurse Practitioner Family; Visit Provider Internal Medicine Hematology & Oncology
DX: C20 Malignant neoplasm of rectum (principal); Z45.2 Encounter for adjustment and management of vascular access device
CPT/HCPCS: 36591; 80053; 82378; 85025